=== PATIENT | female | born 1995 | race Two or more races ===

== ENCOUNTER 2016-05-31 19:17 | Emergency (ER) | payer MEDICAID, OTHER ==
[2016-05-31 19:25] VITALS: BP 108/65; BMI 24.1
[2016-05-31 20:09] LABS: BILIRUBIN,URINE NEGATIVE (NEGATIVE); BLOOD/HEMOGLOBIN,URINE 1+ (NEGATIVE); GLUCOSE, URINE 4+ (NEGATIVE); KETONES,URINE NEGATIVE (NEGATIVE); LEUKOCYTE ESTERASE ,URINE 2+ (NEGATIVE); NITRITES,URINE NEGATIVE (NEGATIVE); PROTEIN,URINE NEGATIVE (NEGATIVE); UROBILINOGEN,URINE NORMAL (NORMAL)
[2016-05-31 20:21] LABS: APPEARANCE,URINE CLEAR (CLEAR); COLOR,URINE YELLOW (YELLOW)
[2016-05-31 20:22] LABS: AMORPHOUS SEDIMENT,UR TRACE /HPF (NEGATIVE); BACTERIA,URINE TRACE /HPF (NEGATIVE); MUCUS,URINE RARE /HPF (NEGATIVE); RBC,URINE 0-3 /HPF (NEGATIVE); SQUAMOUS EPITHELIAL CELL,UR RARE /HPF (NEGATIVE)
--- NOTE | 2016-05-31 20:26 | DR.GENAD ---
HPI - PCP Primary Care Physician: LALA - HPI Comment HPI Comment: PATIENT INCREASE FLUID INTAKE AND DRANK CRAMBERRY JUICE. NO FEVER. SHE IS A DIABETIC. FEW WEEKS AGO [facility]MT[facility] AT [facility] [employer] UTI. - Complaint/Symptoms Chief Complaint Doctors Comments: PAIN RIGHT FLANK AND RUQ OF ABDOMEN TIMES 3 DAYS. Chief Complaint:: " I have back pain where my kidneys at been hurting for about 3days. Went to [facility] about a month ago and they told me i had a kidney infection. Now it hurts to sit been drinking water and cranberry juice. - Nurses notes reviewed Nurses Notes Review: Yes - Source History Provided: Patient - Mode of Arrival Mode of Arrival: Ambulatory - Timing Onset of Chief Complaint: 05/28/16 Came on: Suddenly - Duration Duration: Constant Duration: Days - Severity Severity: Moderate PMH - PMH Past Medical History: Yes Past Medical History: Diabetes Past Surgical History: Yes Surgical History: - Family History History of Family Medical Conditions: Yes Family Medical History: Diabetes Mellitus, Cancer - Social History Alcohol Use: None Do you use any recreational Drugs:: No - infectious screening Have you traveled outside the country in the last 6 months?: No ROS - Review of Systems Constitutional: Fatigue Eyes: No Symptoms Reported ENTM: No Symptoms Reported Respiratoy: No Symptoms Reported Cardiovascular: No Symptoms Reported Gastrointestinal/Abdominal: Abdominal Pain, Nausea Genitourinary: No Symptoms Reported Neurological: No Symptoms Reported Musculoskeletal: Other (RT FLANK PAIN) Integumentary: No Symptoms Reported Hematologic/Lymphatic: No Symptoms Reported Endocrine: No Symptoms Reported All Other Systems: Reviewed and Negative PE - Vital Signs Vitals: Temperature 98.4 F Pulse Rate 108 Respiratory Rate 18 Blood Pressure 108/65 O2 Sat by Pulse Oximetry 98 - General Limitations: No Limitations General Appearance: Alert - Head Head Exam: Normal Inspection - Eyes Eye exam: Normal Appearance - ENT ENT Exam: Normal External Ear Exam TM/Canal Exam: Bilateral Normal Nose Exam: Normal Nose Exam Mouth Exam: Normal Inspection Throat Exam: Normal Inspection - Neck Neck Exam: Normal Inspection - Chest Chest Inspection: Symmetric Chest Wall Rise - Respiratory Respiratory Exam: Bilateral Rhonchi, Lower Rhonchi - Cardiovascular Cardiovascular Exam: Regular Rate, Normal Rhythm, Normal Heart Sounds - Abdominal Exam Abdominal Exam: Normal Bowel Sounds, Soft, Tenderness - Extremities Extremities Exam: Normal Inspection - Back Back Exam: Normal Inspection - Neurologic Neurological Exam: Alert, Oriented X3 - Psychiatric Psychiatric Exam: Anxious ROR - Labs Reviewed Result Diagrams: 05/31/16 20:35 05/31/16 20:35 Laboratory: WBC 10.7 X10^3/uL (3.6-10.0) H 05/31/16 20:35 RBC 4.60 X10^6/uL (3.5-5.4) 05/31/16 20:35 Hgb 13.6 g/dL (12.0-16.0) 05/31/16 20:35 Hct 39.8 % (36.0-47.0) 05/31/16 20:35 MCV 86.5 fL (80.0-100.0) 05/31/16 20:35 MCH 29.6 pg (27.0-34.0) 05/31/16 20:35 MCHC 34.2 g/dL (33.0-35.0) 05/31/16 20:35 RDW 14.0 % (11.6-16.5) 05/31/16 20:35 Plt Count 299 X10^3/uL (150.0-450.0) 05/31/16 20:35 MPV 8.1 fL (7.4-11.0) 05/31/16 20:35 Neut % 64.0 % (42.0-75.0) 05/31/16 20:35 Lymph % 25.4 % (21.0-51.0) 05/31/16 20:35 Peach % 8.9 % (0.0-13.0) 05/31/16 20:35 Eos % 0.6 % (0.9-2.9) L 05/31/16 20:35 Baso % 1.1 % (0.2-1.0) H 05/31/16 20:35 Neut # 6.9 x10^3/uL (2.2-4.8) H 05/31/16 20:35 Lymph # 2.7 X10^3/uL (1.3-2.9) 05/31/16 20:35 Peach # 1.0 x10^3/uL (0.3-0.8) H 05/31/16 20:35 Eos # 0.1 x10^3/uL (0.0-0.2) 05/31/16 20:35 Baso # 0.1 X10^3/uL (0.0-0.1) 05/31/16 20:35 Absolute Nucleated RBC 0.0 /100WBC 05/31/16 20:35 Sodium 136 mmol/L (136-145) 05/31/16 20:35 Corrected Sodium 144 mmol/L (136-145) 05/31/16 20:35 Potassium 3.9 mmol/L (3.5-5.1) 05/31/16 20:35 Chloride 99 mmol/L (98-107) 05/31/16 20:35 Carbon Dioxide 28.4 mmol/L (21-32) 05/31/16 20:35 BUN 15 mg/dL (7-18) 05/31/16 20:35 Creatinine 1.12 mg/dL (0.55-1.02) H 05/31/16 20:35 Est GFR (MDRD) Af Amer > 60 (>60) 05/31/16 20:35 Est GFR (MDRD) Non-Af > 60 (>60) 05/31/16 20:35 Glucose 424 mg/dL (65-99) H 05/31/16 20:35 Calcium 8.9 mg/dL (8.5-10.1) 05/31/16 20:35 Corrected Calcium TNP 05/31/16 20:35 Total Bilirubin 0.40 mg/dL (0.2-1.0) 05/31/16 20:35 AST 9 Units/L (15-37) L 05/31/16 20:35 ALT 19 Units/L (12-78) 05/31/16 20:35 Alkaline Phosphatase 126 Units/L (45-150) 05/31/16 20:35 Total Protein 8.5 g/dL (6.4-8.2) H 05/31/16 20:35 Albumin 3.6 g/dL (3.4-5.0) 05/31/16 20:35 Globulin 4.9 g/dL (2.5-4.5) H 05/31/16 20:35 Albumin/Globulin Ratio 0.7 Ratio (1.1-2.1) L 05/31/16 20:35 Amylase 58 Units/L (25-115) 05/31/16 20:35 Lipase 118 Units/L (73-393) 05/31/16 20:35 HCG, Qual Negative <10 mIU/mL 05/31/16 20:35 Specimen Type Clean catch urine 05/31/16 19:39 Urine Color Yellow (YELLOW) 05/31/16 19:39 Urine Appearance Clear (CLEAR) 05/31/16 19:39 Urine pH 7.0 (5.0 - 8.0) 05/31/16 19:39 Ur Specific [place] 1.005 (1.000-1.030) 05/31/16 19:39 Urine Protein Negative (NEGATIVE) 05/31/16 19:39 Urine Glucose (UA) 4+ (NEGATIVE) 05/31/16 19:39 Urine Ketones Negative (NEGATIVE) 05/31/16 19:39 Urine Occult Blood 1+ (NEGATIVE) 05/31/16 19:39 Urine Nitrite Negative (NEGATIVE) 05/31/16 19:39 Urine Bilirubin Negative (NEGATIVE) 05/31/16 19:39 Urine Urobilinogen Normal (NORMAL) 05/31/16 19:39 Ur Leukocyte Esterase 2+ (NEGATIVE) 05/31/16 19:39 Urine RBC 0-3 /HPF (NEGATIVE) 05/31/16 19:39 Urine WBC 4-5 /HPF (NEGATIVE) 05/31/16 19:39 Ur Squamous Epith Cells Rare /HPF (NEGATIVE) 05/31/16 19:39 Amorphous Sediment Trace /HPF (NEGATIVE) 05/31/16 19:39 Urine Bacteria Trace /HPF (NEGATIVE) 05/31/16 19:39 Urine Mucus Rare /HPF (NEGATIVE) 05/31/16 19:39 Ur Culture Indicated? No/not indicated 05/31/16 19:39 Acetone, Semi-Quant Negative (NEGATIVE) 05/31/16 20:35 - Discharge Plan Disposition: 01 HOME, SELF-CARE Condition: Stable Prescriptions: Acetaminophen/Codeine Tab [TYLENOL w/CODEINE #3 (300 MG/30 MG) *] 1 tab PO Q4- 6H PRN #12 tab PRN Reason: Pain Ciprofloxacin HCl [CIPRO 500 MG TAB *] 500 mg PO Q12H #20 tab Ibuprofen [MOTRIN TAB 600 MG *] 600 mg PO BID PRN #15 tab PRN Reason: Pain/Inflammation - Follow ups/Referrals Follow ups/Referrals: JERED CARD [Primary Care Provider] - 3 days - Instructions Instructions: Flank Pain, [id number], Kidney Stones, [id number], Urinary Tract Infection, [id number] Additional Instructions: RETURN TO ED IF WORSE.
[2016-05-31 20:45] LABS: BASOPHILS # (AUTO) 0.1 X10^3/uL (0.0-0.1); BASOPHILS % (AUTO) 1.1 % (0.2-1.0); EOSINOPHILS # (AUTO) 0.1 x10^3/uL (0.0-0.2); EOSINOPHILS % (AUTO) 0.6 % (0.9-2.9); HEMATOCRIT 39.8 % (36.0-47.0); HEMOGLOBIN 13.6 g/dL (12.0-16.0); LYMPHOCYTES # (AUTO) 2.7 X10^3/uL (1.3-2.9); LYMPHOCYTES % (AUTO) 25.4 % (21.0-51.0); MEAN CORPUSCULAR HEMOGLOBIN 29.6 pg (27.0-34.0); MEAN CORPUSCULAR HGB CONC 34.2 g/dL (33.0-35.0); MEAN CORPUSCULAR VOLUME 86.5 fL (80.0-100.0); MEAN PLATELET VOLUME 8.1 fL (7.4-11.0); MONOCYTES % (AUTO) 8.9 % (0.0-13.0); NEUTROPHILS # (AUTO) 6.9 x10^3/uL (2.2-4.8); PLATELET COUNT 299 X10^3/uL (150.0-450.0); WHITE BLOOD COUNT 10.7 X10^3/uL (3.6-10.0)
[2016-05-31 20:56] LABS: ALANINE AMINOTRANSFERASE 19 Units/L (12-78); ALBUMIN 3.6 g/dL (3.4-5.0); ALKALINE PHOSPHATASE 126 Units/L (45-150); AMYLASE 58 Units/L (25-115); ASPARTATE AMINO TRANSFERASE 9 Units/L (15-37); BLOOD UREA NITROGEN 15 mg/dL (7-18); CALCIUM 8.9 mg/dL (8.5-10.1); CARBON DIOXIDE 28.4 mmol/L (21-32); CHLORIDE 99 mmol/L (98-107); COR NA(FOR HYPERGLY) 144 mmol/L (136-145); CREATININE 1.12 mg/dL (0.55-1.02); GLUCOSE 424 mg/dL (65-99); LIPASE 118 Units/L (73-393); SERUM PREGNANCY TEST, QUAL NEGATIVE <10 mIU/mL; SODIUM 136 mmol/L (136-145); TOTAL PROTEIN 8.5 g/dL (6.4-8.2); eGFR BLACK RACES > 60 (>60); eGFR NON BLACK RACES > 60 (>60)
--- NOTE | 2016-05-31 21:51 | CT ---
CT abdomen and pelvis without contrast Indication: Right flank pain Comparison: None available Technique: Multiple axial images of the abdomen and pelvis were obtained from the lung bases to the pubic symph ysis without the administration of IV contrast. Coronal and sagittal images were also provided. Radiation dose reduction techniques were performed utilizing adjustment for MA/kVP based on patient body size. Findings: The visualized portions of the lung bases are unremarkable. The bony structures are grossly intact. Given the limitations of lack of IV contrast administration the liver, gallbladder, spleen, pancreas , and adrenal glands are unremarkable in their CT appearance. There is moderate right perinephric stranding with mild prominence of the right ureter without obstr ucting stone identified. The left kidney demonstrates no nephrolithiasis, hydronephrosis, mass or pe rinephric stranding. No bowel wall thickening or bowel dilatation is present. The colon and rectum are unremarkable. Th e urinary bladder is grossly unremarkable. The the no pelvic mass. There is enlarged right adnexal c yst measuring approximately 4.5 x 2.9 cm on axial image 66. Small adnexal cysts is suspected on the left as well. The appendix is normal in caliber with inspissated secretions within the lumen. No mesenteric lymphadenopathy or stranding can be observed. No free fluid or free air is seen withi n the abdomen. IMPRESSION: 1. Moderate right-sided perinephric stranding and prominence of the right ureter, potentially this r epresents sequela of recently passed ureteral stone versus pyelonephritis, correlation urinalysis an d patient's symptoms is needed. No nephrolithiasis identified at this time. 2. The appendix is within normal limits for size with inspissated secretions within the lunate. No e vidence of acute appendicitis at this time. 3. Enlarged right adnexal cyst. Reported By:
[2016-05-31] MEDS ORDERED: CIPRO TAB 500 MG PO ONE ×2 (22:39→22:48)
[2016-05-31] MEDS ORDERED: TORADOL TAB PO ONE ×2 (22:44→22:48)
[2016-05-31] MEDS ORDERED: TYLENOL #3 TAB (W/CODEINE) PO ONE ×2 (22:44→22:48)
== END 2016-05-31 23:10 | disposition home or self-care (01) ==
LOC: ER 19:31
DX: R10.11 Right upper quadrant pain (principal); N20.0 Calculus of kidney; N39.0 Urinary tract infection, site not specified
CPT/HCPCS: 36415; 74176; 80053; 81001; 82009; 82150; 83690; 84703; 85025; 99282; 99283